=== PATIENT | male | born 1985 | race Caucasian/White ===

== ENCOUNTER 2016-04-14 00:58 | Emergency (ER) | payer OTHER ==
[~2016-04-14] VITALS: Ht 188 cm; Wt 74.5 kg
[~2016-04-14 00:58] MED LIST: AUGMENTIN600 MG/5 M PO; HYDROCODON-ACE1 EAC7 PO; MOTRIN IB200 MG PO; PEN-VEE K,VEET500 MG PO; PERCOCET 5-3251 EACH PO; ROXICET,PERCOCET5 ML PO; TYLENOL EXTRA500 MG PO
[2016-04-14 02:23] LABS: HEMATOCRIT 40.8 % (38.0-50.0); MCH 30.8 PG (29.0-34.0); MCHC 34.6 G/DL (30.0-36.0); MCV 89.1 FL (86-99); PLATELET COUNT 237 K/uL (156-360); RBC DIS.WIDTH-CV 13.8 % (11.8-14.6); RBC DIS.WIDTH-SD 44.1 % (39-53); RED BLOOD COUNT 4.58 M/uL (4.00-5.50); WHITE BLOOD COUNT 19.7 K/uL (4.1-10.2)
[2016-04-14 03:51] LABS: CHLORIDE 105 mEq/L (99-109); POTASSIUM 3.4 mEq/L (3.7-5.4); SODIUM 138 mEq/L (136-147)
[2016-04-14 03:52] LABS: GLUCOSE 122 mg/dL (70-99)
[2016-04-14 03:54] LABS: ANION GAP 10 MEQ/L (2-14)
[2016-04-14 03:56] LABS: GFR ESTIMATE (CALCULATED) > 59 mL/min/
[2016-04-14 03:57] LABS: UREA NITROGEN (BUN) 13 mg/dL (9-23)
[2016-04-14 04:32] VITALS: BP 138/81
== END 2016-04-14 04:45 | disposition home or self-care (01) ==
LOC: EME 00:58
PROVIDERS: Emergency Medicine
DX: F32.9 Major depressive disorder, single episode, unspecified (principal); F11.10 Opioid abuse, uncomplicated; F17.200 Nicotine dependence, unspecified, uncomplicated
CPT/HCPCS: 80048; 80048 91; 85027; 90839; 99281; 99283; G0480

== ENCOUNTER 2016-07-04 01:21 | Emergency (ER) | payer OTHER ==
[~2016-07-04] VITALS: Ht 188 cm; Wt 74.8 kg
[2016-07-04 02:07] LABS: EOSINOPHIL (%) 1.2 % (0-5); EOSINOPHIL COUNT 0.1 K/uL (0-0.3); IMMATURE GRANULOCYTE (%) 0.4 % (0.0-0.7); INSTRUMENT ABS NEUTROPHIL CT 6.4 K/uL; MCH 30.3 PG (29.0-34.0); MCHC 32.7 G/DL (30.0-36.0); MCV 92.8 FL (86-99); MEAN PLAT.VOLUME 9.7 uM^3 (9.0-12.4); MONOCYTE (%) 6.9 % (3-12); MONOCYTE COUNT 0.6 K/uL (0-0.8); NEUTROPHIL (%) 69.6 % (45-76); NEUTROPHIL COUNT 6.4 K/uL (1.8-6.4); PLATELET COUNT 278 K/uL (156-360); RBC DIS.WIDTH-SD 44.3 % (39-53); RED BLOOD COUNT 5.28 M/uL (4.00-5.50); WHITE BLOOD COUNT 9.2 K/uL (4.1-10.2)
[2016-07-04 02:18] LABS: CHLORIDE 104 mEq/L (99-109); D-DIMER ELISA < 0.15 mg/L FEU (< 0.57); POTASSIUM 4.3 mEq/L (3.7-5.4); SODIUM 139 mEq/L (136-147)
[2016-07-04 02:20] LABS: GLUCOSE 110 mg/dL (70-99)
[2016-07-04 02:22] LABS: ANION GAP 9 MEQ/L (2-14)
[2016-07-04 02:24] LABS: GFR ESTIMATE (CALCULATED) > 59 mL/min/
[2016-07-04 02:25] LABS: UREA NITROGEN (BUN) 13 mg/dL (9-23)
[2016-07-04 02:26] LABS: TROP-I INTERPRETATION NEGATIVE; TROPONIN-I < 0.01 ng/mL (0.0-0.30)
[2016-07-04 04:43] LABS: TROP-I INTERPRETATION NEGATIVE; TROPONIN-I < 0.01 ng/mL (0.0-0.30)
[2016-07-04 05:23] VITALS: BP 111/68
== END 2016-07-04 05:23 | disposition home or self-care (01) ==
LOC: EME 01:21
PROVIDERS: Emergency Medicine
DX: R07.9 Chest pain, unspecified (principal); F17.200 Nicotine dependence, unspecified, uncomplicated
CPT/HCPCS: 71020; 80048; 83735; 84100; 84484; 85025; 85379; 93005; 99281; 99285

== ENCOUNTER 2016-11-19 21:25 | Emergency (ER) | payer OTHER ==
[~2016-11-19] VITALS: Ht 188 cm; Wt 68.0 kg
[2016-11-19] MEDS ORDERED: KEFLEX500 MG PO (23:57)
[2016-11-20 00:09] VITALS: BP 128/76
== END 2016-11-20 00:09 | disposition home or self-care (01) ==
LOC: EME 21:25 → EXP 21:25
DX: L03.113 Cellulitis of right upper limb (principal); F17.200 Nicotine dependence, unspecified, uncomplicated
CPT/HCPCS: 99281; 99283; J0696

== ENCOUNTER 2016-11-30 15:28 | Emergency (ER) | payer OTHER ==
[~2016-11-30] VITALS: Ht 188 cm; Wt 71.7 kg
[~2016-11-30 15:28] MED LIST changes: +KEFLEX500 MG PO
[2016-11-30 17:39] VITALS: BP 112/80
== END 2016-11-30 17:39 | disposition home or self-care (01) ==
LOC: EME 15:28
DX: S51.811A Laceration without foreign body of right forearm, initial encounter (principal); S51.812A Laceration without foreign body of left forearm, initial encounter; W22.8XXA Striking against or struck by other objects, initial encounter
CPT/HCPCS: 73090; 99281; 99284

== ENCOUNTER 2017-02-18 17:59 | Inpatient (IN) | payer OTHER ==
[~2017-02-18] VITALS: Ht 188 cm; Wt 70.0 kg
[2017-02-18 19:32] LABS: HEMATOCRIT 45.6 % (38.0-50.0); HEMOGLOBIN 15.2 G/DL (12.5-16.6); MCH 30.8 PG (29.0-34.0); MCHC 33.3 G/DL (30.0-36.0); MCV 92.3 FL (86-99); PLATELET COUNT 261 K/uL (156-360); RBC DIS.WIDTH-CV 13.2 % (11.8-14.6); RED BLOOD COUNT 4.94 M/uL (4.00-5.50)
[2017-02-18 19:48] LABS: CHLORIDE 110 mEq/L (99-109); POTASSIUM 3.8 mEq/L (3.7-5.4); SODIUM 143 mEq/L (136-147)
[2017-02-18 19:49] LABS: GLUCOSE 83 mg/dL (70-99)
[2017-02-18 19:53] LABS: AMPHETAMINE NEGATIVE (500 ng/mL); BARBITURATES NEGATIVE (200 ng/mL); BENZODIAZEPINES NEGATIVE (150 ng/mL); BUPRENORPHINE NEGATIVE (10 ng/mL); COCAINE PRESUMPTIVE POSITIVE (150 ng/mL); METHADONE NEGATIVE (200 ng/mL); METHAMPHETAMINE NEGATIVE (500 ng/mL); OPIATES (MORPHINE) NEGATIVE (100 ng/mL); OXYCODONE PRESUMPTIVE POSITIVE (100 ng/mL); PHENCYCLIDINE NEGATIVE (25 ng/mL); PROPOXYPHENE NEGATIVE (300 ng/mL); THC CANNABINOIDS PRESUMPTIVE POSITIVE (50 ng/mL); TRICYCLIC ANTIDEPRESSANTS NEGATIVE (300 ng/mL)
[2017-02-18 19:53] LABS: GFR ESTIMATE (CALCULATED) > 59 mL/min/ (58.99-99999); SERUM ETHYL ALCOHOL < 10 mg/dL
[2017-02-18 19:54] LABS: UREA NITROGEN (BUN) 13 mg/dL (9-23)
[2017-02-18 21:57] VITALS: BP 123/66
[2017-02-18] MEDS ORDERED: SEROQUEL200 MG PO (22:21)
[2017-02-18] MEDS ORDERED: BUSPAR15 MG PO (22:22)
[2017-02-18] MEDS ORDERED: NEURONTIN100 MG PO (22:22)
[2017-02-18] MEDS ORDERED: ADDERALL30 MG PO (22:22)
[2017-02-18] MEDS ORDERED: SUBOXONE 12 MG1 EACH SL (22:23)
[2017-02-19 09:10] VITALS: BP 103/56
[2017-02-19 15:28] VITALS: BP 118/68
[2017-02-20 07:27] VITALS: BP 102/50
[2017-02-20 15:39] VITALS: BP 103/56
[2017-02-20 21:20] VITALS: BP 101/58
[2017-02-21 08:02] VITALS: BP 105/62
[2017-02-21] MEDS ORDERED: SEROQUEL200 MG PO (14:20)
[2017-02-21] MEDS ORDERED: BUSPAR15 MG PO (14:20)
[2017-02-21] MEDS ORDERED: NEURONTIN100 MG PO (14:20)
[2017-02-21 15:32] VITALS: BP 101/55
== END 2017-02-22 07:05 | disposition other institution (70) | DRG 881 ==
LOC: EME 17:59 → 1WEST 20:42 → EDOF 20:42 → ENRESERV 21:22 → 1WEST 21:53
DX: F32.9 Major depressive disorder, single episode, unspecified (principal); R45.851 Suicidal ideations; F11.20 Opioid dependence, uncomplicated; F12.10 Cannabis abuse, uncomplicated; F14.10 Cocaine abuse, uncomplicated; F17.200 Nicotine dependence, unspecified, uncomplicated; Z68.1 Body mass index [BMI] 19.9 or less, adult; Z81.8 Family history of other mental and behavioral disorders
CPT/HCPCS: 71020; 80048; 84999; 85027; 90839; 99281; 99285; G0480; J0572; J0574; Q0169